=== PATIENT | male | born 1930 | race Caucasian/White ===

== ENCOUNTER 2016-11-26 17:00 | Emergency (ER) | payer MEDICARE, OTHER ==
[2016-11-26 17:35] VITALS: RESP 18
--- NOTE | 2016-11-26 17:50 | ED ---
General Adult HPI - General Chief complaint: Recheck/Abnormal Lab/Rx Stated complaint: Weakness Time Seen by Provider: 11/26/16 17:16 Source: patient, RN notes reviewed, old records reviewed Mode of arrival: wheelchair Limitations: no limitations - History of Present Illness Initial comments: This is an 86-year-old male the ER for evaluation. Patient will almost emergency room for evaluation of pain. Probable medication reaction. Patient did take morphine today which she does have an ALLERGIC reaction to. Patient denies any significant nausea vomiting is does not feel himself. Denies chest pain or short of breath denies abdominal pain. Complaining of just generalized body pain from his paresthesias which she always has. - Related Data Home Medications Medication Instructions Recorded Confirmed Calcium Carbonate/Vitamin D3 1 tab PO DAILY 12/11/13 11/26/16 [Os-Marcio 500-Vit D3 200 Caplet] Cholecalciferol [Vitamin D3] 1,000 unit PO DAILY 12/11/13 11/26/16 Cyanocobalamin [Vitamin B-12] 1,000 mcg PO DAILY 12/11/13 11/26/16 Ferrous Sulfate [Feosol] 325 mg PO BID 12/11/13 11/26/16 Levothyroxine Sodium [Synthroid] 100 mcg PO AC-BRKFST 12/11/13 11/26/16 Lisinopril [Prinivil] 20 mg PO BID 12/11/13 11/26/16 Multivitamin [Men's Multi-Vitamin] 1 tab PO DAILY 12/11/13 11/26/16 Lansoprazole [Prevacid] 30 mg PO DAILY PRN 04/01/15 11/26/16 Ondansetron [Zofran] 4 mg PO Q12HR PRN 04/01/15 11/26/16 Diphenoxylate HCl/Atropine 1 tab PO TID PRN 07/17/16 11/26/16 [Lomotil] Donepezil [Aricept] 5 mg PO HS 07/17/16 11/26/16 Melatonin 3 mg PO HS PRN 07/17/16 11/26/16 Methenamine Hippurate 1 gm PO BID 07/17/16 11/26/16 PARoxetine HCL [Paxil] 40 mg PO DAILY 07/17/16 11/26/16 Spironolactone [Aldactone] 25 mg PO DAILY 07/17/16 11/26/16 Aspirin EC [Ecotrin Low Dose] 81 mg PO HS 07/21/16 11/26/16 Metoprolol Succinate [Toprol XL] 100 mg PO DAILY 09/15/16 11/26/16 Propranolol HCl [Inderal] 60 mg PO BID 09/15/16 11/26/16 hydrALAZINE HCL 25 mg PO TID 09/15/16 11/26/16 Cetirizine HCl [Zyrtec] 10 mg PO DAILY 11/26/16 11/26/16 Mesalamine [Lialda] 1.2 gm PO BID 11/26/16 11/26/16 Neuroquell Otc 1 tab PO QID 11/26/16 11/26/16 Vitamin E (Dl,Tocopheryl Acet) 400 unit PO DAILY 11/26/16 11/26/16 [Vitamin E] oxyCODONE HCL 10 mg PO QID 11/26/16 11/26/16 Previous Rx's Medication Instructions Recorded Apixaban [Eliquis] 2.5 mg PO BID #60 tab 07/23/16 Allergies Allergy/AdvReac Type Severity Reaction Status Date / Time cephalexin [Cephalexin] Allergy Unknown Verified 11/26/16 18:14 cephalexin monohydrate Allergy Unknown Verified 11/26/16 18:14 [From Keflex] doxycycline Allergy Unknown Verified 11/26/16 17:36 furosemide [From Lasix] Allergy Unknown Verified 11/26/16 17:36 hydrocodone bitartrate Allergy Unknown Verified 11/26/16 18:14 [From Vicodin] hydromorphone HCl Allergy Unknown Verified 11/26/16 18:14 [From Dilaudid] levofloxacin [From Levaquin] Allergy Anaphylaxis Verified 11/26/16 18:14 nitrofurantoin Allergy Unknown Verified 11/26/16 17:36 macrocrystalline [From Macrodantin] sulfamethoxazole Allergy Unknown Verified 11/26/16 18:14 [From Bactrim] trimethoprim [From Bactrim] Allergy Unknown Verified 11/26/16 18:14 gabapentin AdvReac INCREASE Verified 11/26/16 18:14 IN BLOOD PRESSURE, PAIN INCREASED morphine AdvReac BLOOD Verified 11/26/16 18:14 PRESSURE DROPPED. Review of Systems ROS Statement: Those systems with pertinent positive or pertinent negative responses have been documented in the HPI. ROS Other: All systems not noted in ROS Statement are negative. 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 Past Anesthesia/Blood Transfusion Reactions: No Reported Reaction Type of Cardiac Device: Permanent Pacemaker Device Placement Date:: 2012 Past Psychological History: Anxiety, Depression Smoking Status: Never smoker Past Alcohol Use History: None Reported Additional Past Alcohol Use History / Comment(s): . Past Drug Use History: None Reported - Past Family History Father Family Medical History: Cancer Additional Family Medical History / Comment(s): at age 54 from colon cancer Mother Additional Family Medical History / Comment(s): at age 86 from aaa General Exam Limitations: no limitations General appearance: alert, in no apparent distress Head exam: Present: atraumatic, normocephalic, normal inspection Eye exam: Present: normal appearance, PERRL, EOMI. Absent: scleral icterus, conjunctival injection, periorbital swelling ENT exam: Present: normal exam, mucous membranes moist Neck exam: Present: normal inspection. Absent: tenderness, meningismus, lymphadenopathy Respiratory exam: Present: normal lung sounds bilaterally. Absent: respiratory distress, wheezes, rales, rhonchi, stridor Cardiovascular Exam: Present: regular rate, normal rhythm, normal heart sounds. Absent: systolic murmur, diastolic murmur, rubs, gallop, clicks GI/Abdominal exam: Present: soft, normal bowel sounds. Absent: distended, tenderness, guarding, rebound, rigid Extremities exam: Present: normal inspection, full ROM, normal capillary refill. Absent: tenderness, pedal edema, joint swelling, calf tenderness Back exam: Present: normal inspection Neurological exam: Present: alert, oriented X3, CN II-XII intact Psychiatric exam: Present: normal affect, normal mood Skin exam: Present: warm, dry, intact, normal color. Absent: rash Course Vital Signs 11/26/16 17:31 Temperature 98.2 F Pulse Rate 68 Respiratory 18 Rate Blood Pressure 139/73 O2 Sat by Pulse 93 L Oximetry - Reevaluation(s) Reevaluation #1: 11/26/16 19:09 At this point patient is feeling improved EKG Findings - EKG Comments: EKG Findings:: EKG shows normal sinus rhythm rate of 65, MN 180, QRS 90, QTc 457 Medical Decision Making - Medical Decision Making 78 male the ER for evaluation of chronic pain. Paresthesias. Neuropathy. Patient's pain status control will be discharged home follow-up with pain control in the morning - Lab Data Result diagrams: 11/26/16 18:05 11/26/16 18:05 Lab Results 11/26/16 11/26/16 Range/Units 18:05 18:05 WBC 11.5 H (3.8-10.6) k/uL RBC 3.82 L (4.30-5.90) m/uL Hgb 11.9 L (13.0-17.5) gm/dL Hct 36.4 L (39.0-53.0) % MCV 95.1 (80.0-100.0) fL MCH 31.0 (25.0-35.0) pg MCHC 32.6 (31.0-37.0) g/dL RDW 14.2 (11.5-15.5) % Plt Count 318 (150-450) k/uL Neutrophils % 81 % Lymphocytes % 10 % Monocytes % 7 % Eosinophils % 1 % Basophils % 1 % Neutrophils # 9.3 H (1.3-7.7) k/uL Lymphocytes # 1.1 (1.0-4.8) k/uL Monocytes # 0.8 (0-1.0) k/uL Eosinophils # 0.1 (0-0.7) k/uL Basophils # 0.1 (0-0.2) k/uL Sodium 131 L (137-145) mmol/L Potassium 4.8 (3.5-5.1) mmol/L Chloride 94 L (98-107) mmol/L Carbon Dioxide 29 (22-30) mmol/L Anion Gap 8 mmol/L BUN 23 H (9-20) mg/dL Creatinine 1.27 H (0.66-1.25) mg/dL Est GFR (MDRD) Af Amer >60 (>60 ml/min/1.73 sqM) Est GFR (MDRD) Non-Af 54 (>60 ml/min/1.73 sqM) Glucose 100 H (74-99) mg/dL Calcium 9.2 (8.4-10.2) mg/dL Phosphorus 3.2 (2.5-4.5) mg/dL Magnesium 2.0 (1.6-2.3) mg/dL Total Bilirubin 0.8 (0.2-1.3) mg/dL AST 24 (17-59) U/L ALT 25 (21-72) U/L Alkaline Phosphatase 56 (38-126) U/L Total Protein 7.4 (6.3-8.2) g/dL Albumin 4.1 (3.5-5.0) g/dL Disposition Clinical Impression: Neuropathic pain, Chronic pain Disposition: HOME SELF-CARE Condition: Good Instructions: Diabetic Peripheral Neuropathy (ED) Referrals: Artem Duran MD [Primary Care Provider] - 1-2 days
[2016-11-26] MEDS ORDERED: PANTOPRAZOLE 40 MG/10 ML VIAL IVP STA (18:26)
[2016-11-26] MEDS ORDERED: SODIUM CHLORIDE 0.9% 500 ML IV STA (18:26)
[2016-11-26] MEDS ORDERED: ONDANSETRON 4 MG/2 ML VIAL IVP STA (18:26)
[2016-11-26 18:53] LABS: Basophils # (A) 0.1 k/uL (0-0.2); Basophils % (A) 1 %; CH 31.1; CHCM 32.9; Eosinophils # (A) 0.1 k/uL (0-0.7); Eosinophils % (A) 1 %; HCT 36.4 % (39.0-53.0); HDW 2.24; HGB 11.9 gm/dL (13.0-17.5); Luc # (Auto) 0.22; Luc % (Auto) 2; Lymphocytes # (A) 1.1 k/uL (1.0-4.8); Lymphocytes % (A) 10 %; MCHC 32.6 g/dL (31.0-37.0); MCV 95.1 fL (80.0-100.0); Monocytes # (A) 0.8 k/uL (0-1.0); Monocytes % (A) 7 %; Neutrophils # (A) 9.3 k/uL (1.3-7.7); Neutrophils % (A) 81 %; RBC 3.82 m/uL (4.30-5.90); RDW 14.2 % (11.5-15.5); WBC 11.5 k/uL (3.8-10.6); WBC (Perox) 11.52
--- NOTE | 2016-11-26 18:53 | XR ---
EXAMINATION TYPE: XR chest 2V DATE OF EXAM: 11/26/2016 6:48 PM COMPARISON: NONE HISTORY: Weakness, abnormal labs, hypertension, and pacemaker. TECHNIQUE: Frontal and lateral views of the chest are obtained. FINDINGS: There is no focal air space opacity, pleural effusion, or pneumothorax seen. Dual lead ca rdiac device is redemonstrated. Cardiac silhouette is prominent. The osseous structures are intact. IMPRESSION: No acute cardiopulmonary process.
[2016-11-26] MEDS: NALOXONE 0.4 MG/ML 10 ML VIAL IVP STA ×2 (18:59→19:14)
[2016-11-26 19:01] LABS: ALT 25 U/L (21-72); AST 24 U/L (17-59); Alkaline Phosphatase 56 U/L (38-126); Anion Gap 8 mmol/L; Blood Urea Nitrogen 23 mg/dL (9-20); Calcium 9.2 mg/dL (8.4-10.2); Carbon Dioxide 29 mmol/L (22-30); Chloride 94 mmol/L (98-107); Glucose 100 mg/dL (74-99); Non-African American GFR(MDRD) 54 (>60 ml/min/1.73 sqM); Phosphorous 3.2 mg/dL (2.5-4.5); Potassium 4.8 mmol/L (3.5-5.1); Sodium 131 mmol/L (137-145); Total Bilirubin 0.8 mg/dL (0.2-1.3); Total Protein 7.4 g/dL (6.3-8.2)
[2016-11-26] MEDS ORDERED: diphenhydrAMINE 50 MG/ML 1 ML VIAL IVP STA (19:08)
[2016-11-26] MEDS ORDERED: traMADol 50 MG TAB PO STA (19:08)
[2016-11-26 19:23] LABS: Troponin I 0.013 ng/mL (0.000-0.034)
[2016-11-26] MEDS ORDERED: HYDROmorphone 1 MG/ML 1 ML SYRINGE IVP STA ×2 (19:53→20:30)
[2016-11-26 21:22] VITALS: BP 167/72; PULSE 74; TEMP 98
== END 2016-11-26 21:22 | disposition home or self-care (01) ==
LOC: EC 17:00
DX: G62.9 Polyneuropathy, unspecified (principal); G89.29 Other chronic pain; I48.91 Unspecified atrial fibrillation; K21.9 Gastro-esophageal reflux disease without esophagitis; E78.5 Hyperlipidemia, unspecified; I10 Essential (primary) hypertension; N42.9 Disorder of prostate, unspecified; E07.9 Disorder of thyroid, unspecified; Z95.0 Presence of cardiac pacemaker; F41.9 Anxiety disorder, unspecified; Z79.82 Long term (current) use of aspirin; Z79.899 Other long term (current) drug therapy; Z79.891 Long term (current) use of opiate analgesic; Z88.1 Allergy status to other antibiotic agents; Z87.440 Personal history of urinary (tract) infections; Z88.5 Allergy status to narcotic agent; Z88.8 Allergy status to other drugs, medicaments and biological substances
CPT/HCPCS: 36415; 93005; 80053; 82550; 82553; 83735; 84100; 84484; 85025; 71020; 96374; 96375; 96376; 99285; 96361; J1200; J2310; J2405; J1170; C9113

== ENCOUNTER 2016-12-27 17:20 | Emergency (ER) | payer MEDICARE, OTHER ==
[2016-12-27] MEDS ORDERED: SODIUM CHLORIDE 0.9% 500 ML IV STA (17:48)
[2016-12-27] MEDS ORDERED: HYDROcodone/APAP 10-325MG 1 EACH TAB PO ONE (17:52)
--- NOTE | 2016-12-27 18:06 | ED ---
Nausea/Vomiting/Diarrhea HPI - General Chief complaint: Nausea/Vomiting/Diarrhea Stated complaint: nausea,vomiting,weakness Time Seen by Provider: 12/27/16 17:39 Source: patient, RN notes reviewed Mode of arrival: wheelchair Limitations: no limitations - History of Present Illness Initial comments: 86-year-old male presents emergency Department with chief complaint of nausea vomiting weakness pain. Patient states that he started on Hysingla on Tuesday and states that he had nausea and did not follow up all shortly after. Patient states he refuses take it again and states that he now has uncontrolled pain. Patient has been on chronic pain meds for a long period time. Patient has multiple drug ALLERGIES. Patient states he has no abdominal pain states he has nausea when he does not want to eat. Patient states his abdomen episode of vomiting. Patient denies chest pain or shortness of breath denies fever or chills. - Related Data Home Medications Medication Instructions Recorded Confirmed Calcium Carbonate/Vitamin D3 1 tab PO DAILY 12/11/13 12/27/16 [Os-Marcio 500-Vit D3 200 Caplet] Cholecalciferol [Vitamin D3] 1,000 unit PO DAILY 12/11/13 12/27/16 Cyanocobalamin [Vitamin B-12] 500 mcg PO DAILY 12/11/13 12/27/16 Ferrous Sulfate [Feosol] 325 mg PO BID 12/11/13 12/27/16 Levothyroxine Sodium [Synthroid] 100 mcg PO AC-BRKFST 12/11/13 12/27/16 Lisinopril [Prinivil] 20 mg PO BID 12/11/13 12/27/16 Lansoprazole [Prevacid] 30 mg PO DAILY 04/01/15 12/27/16 Ondansetron [Zofran] 4 mg PO Q12HR PRN 04/01/15 12/27/16 Diphenoxylate HCl/Atropine 1 tab PO TID PRN 07/17/16 12/27/16 [Lomotil] Donepezil [Aricept] 5 mg PO HS 07/17/16 12/27/16 Melatonin 3 mg PO HS PRN 07/17/16 12/27/16 Methenamine Hippurate 1 gm PO BID 07/17/16 12/27/16 PARoxetine HCL [Paxil] 40 mg PO DAILY 07/17/16 12/27/16 Spironolactone [Aldactone] 12.5 mg PO DAILY 07/17/16 12/27/16 Aspirin EC [Ecotrin Low Dose] 81 mg PO HS 07/21/16 12/27/16 Metoprolol Succinate [Toprol XL] 100 mg PO DAILY 09/15/16 12/27/16 hydrALAZINE HCL 25 mg PO TID 09/15/16 12/27/16 Cetirizine HCl [Zyrtec] 10 mg PO DAILY 11/26/16 12/27/16 Mesalamine [Lialda] 1.2 gm PO AC-BID 11/26/16 12/27/16 Neuroquell Otc 1 tab PO DAILY 11/26/16 12/27/16 Vitamin E (Dl,Tocopheryl Acet) 400 unit PO DAILY 11/26/16 12/27/16 [Vitamin E] HYDROcodone/APAP 10-325MG [Scotts 1 tab PO BID PRN 12/27/16 12/27/16 10-325] Multivitamins, Thera [Multivitamin 1 tab PO DAILY 12/27/16 12/27/16 (formulary)] Previous Rx's Medication Instructions Recorded Apixaban [Eliquis] 2.5 mg PO BID #60 tab 07/23/16 Amoxicillin/Potassium Clav 1 tab PO Q12HR #20 tab 12/27/16 [Augmentin 875-125 Tablet] Allergies Allergy/AdvReac Type Severity Reaction Status Date / Time cephalexin [Cephalexin] Allergy Unknown Verified 12/27/16 18:32 doxycycline Allergy Unknown Verified 12/27/16 18:32 furosemide [From Lasix] Allergy Unknown Verified 12/27/16 18:32 hydromorphone HCl Allergy Unknown Verified 12/27/16 18:32 [From Dilaudid] levofloxacin [From Levaquin] Allergy Anaphylaxis Verified 12/27/16 18:32 nitrofurantoin Allergy Unknown Verified 12/27/16 18:32 macrocrystalline [From Macrodantin] sulfamethoxazole Allergy Unknown Verified 12/27/16 18:32 [From Bactrim] trimethoprim [From Bactrim] Allergy Unknown Verified 12/27/16 18:32 morphine AdvReac Severe Decreased Verified 12/27/16 18:32 Blood Pressure gabapentin AdvReac Increase Verified 12/27/16 18:32 in Pain/Diarrhea hydrocodone AdvReac Nausea/"Feel Verified 12/27/16 18:33 [From Hysingla ER] Weird All Over" Review of Systems ROS Statement: Those systems with pertinent positive or pertinent negative responses have been documented in the HPI. ROS Other: All systems not noted in ROS Statement are negative. 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 Past Anesthesia/Blood Transfusion Reactions: No Reported Reaction Type of Cardiac Device: Permanent Pacemaker Device Placement Date:: 2012 Past Psychological History: Anxiety, Depression Smoking Status: Never smoker Past Alcohol Use History: None Reported Additional Past Alcohol Use History / Comment(s): . Past Drug Use History: None Reported - Past Family History Father Family Medical History: Cancer Additional Family Medical History / Comment(s): at age 54 from colon cancer Mother Additional Family Medical History / Comment(s): at age 86 from aaa General Exam Limitations: no limitations General appearance: alert, in no apparent distress Head exam: Present: atraumatic, normocephalic, normal inspection Neck exam: Present: normal inspection, full ROM. Absent: tenderness, meningismus, lymphadenopathy Respiratory exam: Present: normal lung sounds bilaterally. Absent: respiratory distress, wheezes, rales, rhonchi, stridor Cardiovascular Exam: Present: regular rate, normal rhythm, normal heart sounds. Absent: systolic murmur, diastolic murmur, rubs, gallop, clicks GI/Abdominal exam: Present: soft, normal bowel sounds. Absent: distended, tenderness, guarding, rebound, rigid Neurological exam: Present: alert, oriented X3, CN II-XII intact Skin exam: Present: warm, dry, intact, normal color. Absent: rash Course Vital Signs 12/27/16 12/27/16 17:34 17:51 Temperature 98.4 F Pulse Rate 72 67 Respiratory 18 20 Rate Blood Pressure 116/69 125/73 O2 Sat by Pulse 97 95 Oximetry Medical Decision Making - Medical Decision Making 86-year-old male presented for medication reaction. Patient does feel improved at this time. Patient's found to have urinary tract infection. Patient will be discharged on Augmentin at this time it. Patient's prior cultures do show susceptibility to Augmentin 1 his had E. coli. Patient will follow up outpatient for recheck return parameters were discussed. - Lab Data Result diagrams: 12/27/16 18:10 12/27/16 18:10 Lab Results 12/27/16 12/27/16 12/27/16 Range/Units 18:10 18:10 18:10 WBC 9.0 (3.8-10.6) k/uL RBC 4.07 L (4.30-5.90) m/uL Hgb 12.6 L (13.0-17.5) gm/dL Hct 38.7 L (39.0-53.0) % MCV 95.1 (80.0-100.0) fL MCH 30.9 (25.0-35.0) pg MCHC 32.4 (31.0-37.0) g/dL RDW 14.0 (11.5-15.5) % Plt Count 357 (150-450) k/uL Neutrophils % 78 % Lymphocytes % 11 % Monocytes % 8 % Eosinophils % 1 % Basophils % 0 % Neutrophils # 7.0 (1.3-7.7) k/uL Lymphocytes # 1.0 (1.0-4.8) k/uL Monocytes # 0.8 (0-1.0) k/uL Eosinophils # 0.1 (0-0.7) k/uL Basophils # 0.0 (0-0.2) k/uL Sodium 129 L (137-145) mmol/L Potassium 4.8 (3.5-5.1) mmol/L Chloride 94 L (98-107) mmol/L Carbon Dioxide 27 (22-30) mmol/L Anion Gap 8 mmol/L BUN 21 H (9-20) mg/dL Creatinine 1.21 (0.66-1.25) mg/dL Est GFR (MDRD) Af Amer >60 (>60 ml/min/1.73 sqM) Est GFR (MDRD) Non-Af 57 (>60 ml/min/1.73 sqM) Glucose 98 (74-99) mg/dL Calcium 9.2 (8.4-10.2) mg/dL Total Bilirubin 0.6 (0.2-1.3) mg/dL AST 20 (17-59) U/L ALT 24 (21-72) U/L Alkaline Phosphatase 48 (38-126) U/L Troponin I <0.012 (0.000-0.034) ng/mL Total Protein 7.2 (6.3-8.2) g/dL Albumin 4.1 (3.5-5.0) g/dL Amylase 68 (30-110) U/L Lipase 176 (23-300) U/L Urine Color Urine Appearance (Clear) Urine pH (5.0-8.0) Ur Specific [place] (1.001-1.035) Urine Protein (Negative) Urine Glucose (UA) (Negative) Urine Ketones (Negative) Urine Blood (Negative) Urine Nitrite (Negative) Urine Bilirubin (Negative) Urine Urobilinogen (<2.0) mg/dL Ur Leukocyte Esterase (Negative) Urine RBC (0-5) /hpf Urine WBC (0-5) /hpf Urine WBC Clumps (None) /hpf Ur Squamous Epith Cells (0-4) /hpf Urine Bacteria (None) /hpf 12/27/16 Range/Units 19:25 WBC (3.8-10.6) k/uL RBC (4.30-5.90) m/uL Hgb (13.0-17.5) gm/dL Hct (39.0-53.0) % MCV (80.0-100.0) fL MCH (25.0-35.0) pg MCHC (31.0-37.0) g/dL RDW (11.5-15.5) % Plt Count (150-450) k/uL Neutrophils % % Lymphocytes % % Monocytes % % Eosinophils % % Basophils % % Neutrophils # (1.3-7.7) k/uL Lymphocytes # (1.0-4.8) k/uL Monocytes # (0-1.0) k/uL Eosinophils # (0-0.7) k/uL Basophils # (0-0.2) k/uL Sodium (137-145) mmol/L Potassium (3.5-5.1) mmol/L Chloride (98-107) mmol/L Carbon Dioxide (22-30) mmol/L Anion Gap mmol/L BUN (9-20) mg/dL Creatinine (0.66-1.25) mg/dL Est GFR (MDRD) Af Amer (>60 ml/min/1.73 sqM) Est GFR (MDRD) Non-Af (>60 ml/min/1.73 sqM) Glucose (74-99) mg/dL Calcium (8.4-10.2) mg/dL Total Bilirubin (0.2-1.3) mg/dL AST (17-59) U/L ALT (21-72) U/L Alkaline Phosphatase (38-126) U/L Troponin I (0.000-0.034) ng/mL Total Protein (6.3-8.2) g/dL Albumin (3.5-5.0) g/dL Amylase (30-110) U/L Lipase (23-300) U/L Urine Color Yellow Urine Appearance Cloudy (Clear) Urine pH 7.0 (5.0-8.0) Ur Specific [place] 1.014 (1.001-1.035) Urine Protein Trace H (Negative) Urine Glucose (UA) Negative (Negative) Urine Ketones Trace H (Negative) Urine Blood Negative (Negative) Urine Nitrite Positive (Negative) Urine Bilirubin Negative (Negative) Urine Urobilinogen <2.0 (<2.0) mg/dL Ur Leukocyte Esterase Large H (Negative) Urine RBC 12 H (0-5) /hpf Urine WBC >182 H (0-5) /hpf Urine WBC Clumps Occasional H (None) /hpf Ur Squamous Epith Cells <1 (0-4) /hpf Urine Bacteria Rare H (None) /hpf Disposition Clinical Impression: UTI (urinary tract infection), Chronic pain Disposition: HOME SELF-CARE Condition: Stable Instructions: Urinary Tract Infection in Men (ED) Additional Instructions: Please return to the Emergency Department if symptoms worsen or any other concerns. Prescriptions: Amoxicillin/Potassium Clav [Augmentin 875-125 Tablet] 1 tab PO Q12HR #20 tab Referrals: Artem Duran MD [Primary Care Provider] - 1-2 days Time of Disposition: 20:04
[2016-12-27 18:25] LABS: Basophils % (A) 0 %; CH 31.6; CHCM 33.4; Eosinophils # (A) 0.1 k/uL (0-0.7); Eosinophils % (A) 1 %; HCT 38.7 % (39.0-53.0); HDW 2.18; HGB 12.6 gm/dL (13.0-17.5); Luc # (Auto) 0.16; Luc % (Auto) 2; Lymphocytes % (A) 11 %; MCH 30.9 pg (25.0-35.0); MCHC 32.4 g/dL (31.0-37.0); MCV 95.1 fL (80.0-100.0); Monocytes # (A) 0.8 k/uL (0-1.0); Monocytes % (A) 8 %; Neutrophils % (A) 78 %; RBC 4.07 m/uL (4.30-5.90); WBC (Perox) 9.43
[2016-12-27 18:34] LABS: ALT 24 U/L (21-72); AST 20 U/L (17-59); Alkaline Phosphatase 48 U/L (38-126); Amylase 68 U/L (30-110); Anion Gap 8 mmol/L; Blood Urea Nitrogen 21 mg/dL (9-20); Calcium 9.2 mg/dL (8.4-10.2); Carbon Dioxide 27 mmol/L (22-30); Chloride 94 mmol/L (98-107); Glucose 98 mg/dL (74-99); Non-African American GFR(MDRD) 57 (>60 ml/min/1.73 sqM); Potassium 4.8 mmol/L (3.5-5.1); Sodium 129 mmol/L (137-145); Total Bilirubin 0.6 mg/dL (0.2-1.3); Total Protein 7.2 g/dL (6.3-8.2)
--- NOTE | 2016-12-27 18:41 | XR ---
EXAMINATION TYPE: XR chest 2V DATE OF EXAM: 12/27/2016 6:37 PM COMPARISON: 11/26/2016 HISTORY: Nausea TECHNIQUE: Frontal and lateral views of the chest are obtained. FINDINGS: There is no heart failure nor confluent pneumonic infiltrate. Thoracic aorta is atheromato us. There is a left axillary pacemaker with the lead tips in the right ventricle. There are chest lauren ds. IMPRESSION: No active cardiopulmonary disease. No change.
[2016-12-27 19:48] LABS: Appearance,Urine Cloudy (Clear); Bacteria,Urine Rare /hpf; Bilirubin,Urine Negative (Negative); Glucose,Urine (UA) Negative (Negative); Ketones,Urine Trace (Negative); Leukocyte Esterase,Urine Large (Negative); Nitrite,Urine Positive (Negative); Particle Count 6400; Protein,Urine Trace (Negative); RBC,Urine 12 /hpf (0-5); Specific Gravity,Urine 1.014 (1.001-1.035); Squamous Epithelial Cell,Urine <1 /hpf (0-4); UA Billing (MACRO vs. MICRO) MICRO; Urobilinogen,Urine <2.0 mg/dL (<2.0); WBC,Urine >182 /hpf (0-5)
[2016-12-27 20:35] VITALS: BP 128/71; PULSE 70; RESP 18; TEMP 98.1
== END 2016-12-27 20:25 | disposition home or self-care (01) ==
LOC: EC 17:20
DX: N39.0 Urinary tract infection, site not specified (principal); G89.29 Other chronic pain; R11.2 Nausea with vomiting, unspecified; I48.91 Unspecified atrial fibrillation; I50.9 Heart failure, unspecified; K21.9 Gastro-esophageal reflux disease without esophagitis; E78.5 Hyperlipidemia, unspecified; I11.0 Hypertensive heart disease with heart failure; E07.9 Disorder of thyroid, unspecified; Z95.0 Presence of cardiac pacemaker; F41.9 Anxiety disorder, unspecified; F32.9 Major depressive disorder, single episode, unspecified; Z88.1 Allergy status to other antibiotic agents; Z88.2 Allergy status to sulfonamides; Z88.5 Allergy status to narcotic agent; Z88.8 Allergy status to other drugs, medicaments and biological substances; Z79.82 Long term (current) use of aspirin; Z79.899 Other long term (current) drug therapy
CPT/HCPCS: 36415; 71020; 80053; 81001; 82150; 83690; 84484; 85025; 93005; 96360; 99285

== ENCOUNTER 2017-01-15 17:42 | Observation (INO) | payer MEDICARE, OTHER ==
[2017-01-15] MEDS ORDERED: methylPREDNISolone SOD SUCCI 125 MG/2 ML VIAL IV STA (17:43)
[2017-01-15] MEDS ORDERED: IPRATROPIUM 0.5 MG/2.5 ML NEBU INHALATION STA (17:43)
[2017-01-15] MEDS ORDERED: ALBUTEROL NEBULIZED 2.5 MG/3 ML INHALATION STA (17:43)
[2017-01-15] MEDS ORDERED: SODIUM CHLORIDE 0.9% 1,000 ML IV STA (17:43)
[2017-01-15] MEDS ORDERED: KETOROLAC 30 MG/ML 1 ML VIAL IVP STA (17:47)
[2017-01-15] MEDS ORDERED: ACETAMINOPHEN IV (For NPO) 1,000 MG in EMPTY BAG 1 BAG IVPB STA (17:47)
[2017-01-15 18:09] LABS: Basophils # (A) 0.1 k/uL (0-0.2); Basophils % (A) 1 %; CH 31.7; CHCM 34.1; Eosinophils # (A) 0.2 k/uL (0-0.7); Eosinophils % (A) 3 %; HCT 35.5 % (39.0-53.0); HGB 11.8 gm/dL (13.0-17.5); Luc # (Auto) 0.19; Luc % (Auto) 3; Lymphocytes # (A) 1.3 k/uL (1.0-4.8); Lymphocytes % (A) 20 %; MCHC 33.2 g/dL (31.0-37.0); MCV 93.2 fL (80.0-100.0); Mean Platelet Volume 6.9; Monocytes # (A) 0.4 k/uL (0-1.0); Monocytes % (A) 6 %; Neutrophils # (A) 4.4 k/uL (1.3-7.7); Neutrophils % (A) 68 %; RBC 3.81 m/uL (4.30-5.90); RDW 13.4 % (11.5-15.5); WBC 6.5 k/uL (3.8-10.6)
[2017-01-15 18:13] LABS: Prothrombin Time 10.2 sec (9.0-12.0)
[2017-01-15 18:17] LABS: ALT 22 U/L (21-72); AST 29 U/L (17-59); Alkaline Phosphatase 44 U/L (38-126); Anion Gap 10 mmol/L; Blood Urea Nitrogen 28 mg/dL (9-20); Calcium 8.8 mg/dL (8.4-10.2); Carbon Dioxide 25 mmol/L (22-30); Chloride 101 mmol/L (98-107); Glucose 115 mg/dL (74-99); Non-African American GFR(MDRD) >60 (>60 ml/min/1.73 sqM); Potassium 4.6 mmol/L (3.5-5.1); Sodium 136 mmol/L (137-145); Total Bilirubin 0.7 mg/dL (0.2-1.3); Total Protein 6.6 g/dL (6.3-8.2)
--- NOTE | 2017-01-15 18:21 | ED ---
General Adult HPI - General Chief complaint: Shortness of Breath Stated complaint: Diff Breathing Time Seen by Provider: 01/15/17 17:43 Source: patient, EMS, RN notes reviewed, old records reviewed Mode of arrival: EMS Limitations: no limitations - History of Present Illness Initial comments: This is a 87-year-old male EL assurance of breath or sore throat. Congestion and chest pain. Patient was mildly short of breath upon EMS arrival and brought to ER if any breathing treatment. Patient does not have a history of COPD per patient. Patient's history is hypertension and A. fib chest pain high blood pressure high cholesterol. Patient's mainly complaining of chest pain at this time. Patient usually takes [place] for his pain with is not working at this time. No fevers no cough or congestion - Related Data Home Medications Medication Instructions Recorded Confirmed Calcium Carbonate/Vitamin D3 1 tab PO DAILY 12/11/13 01/15/17 [Os-Marcio 500-Vit D3 200 Caplet] Cholecalciferol [Vitamin D3] 1,000 unit PO DAILY 12/11/13 01/15/17 Cyanocobalamin [Vitamin B-12] 500 mcg PO DAILY 12/11/13 01/15/17 Ferrous Sulfate [Feosol] 325 mg PO BID 12/11/13 01/15/17 Levothyroxine Sodium [Synthroid] 100 mcg PO AC-BRKFST 12/11/13 01/15/17 Lisinopril [Prinivil] 20 mg PO BID 12/11/13 01/15/17 Lansoprazole [Prevacid] 30 mg PO DAILY 04/01/15 01/15/17 Ondansetron [Zofran] 4 mg PO Q12HR PRN 04/01/15 01/15/17 Diphenoxylate HCl/Atropine 1 tab PO TID PRN 07/17/16 01/15/17 [Lomotil] Donepezil [Aricept] 5 mg PO HS 07/17/16 01/15/17 Melatonin 3 mg PO HS PRN 07/17/16 01/15/17 Methenamine Hippurate 1 gm PO BID 07/17/16 01/15/17 PARoxetine HCL [Paxil] 40 mg PO DAILY 07/17/16 01/15/17 Spironolactone [Aldactone] 12.5 mg PO DAILY 07/17/16 01/15/17 Aspirin EC [Ecotrin Low Dose] 81 mg PO HS 07/21/16 01/15/17 Metoprolol Succinate [Toprol XL] 100 mg PO DAILY 09/15/16 01/15/17 hydrALAZINE HCL 25 mg PO TID 09/15/16 01/15/17 Cetirizine HCl [Zyrtec] 10 mg PO DAILY 11/26/16 01/15/17 Mesalamine [Lialda] 1.2 gm PO AC-BID 11/26/16 01/15/17 Neuroquell Otc 1 tab PO DAILY 11/26/16 01/15/17 Vitamin E (Dl,Tocopheryl Acet) 400 unit PO DAILY 11/26/16 01/15/17 [Vitamin E] HYDROcodone/APAP 10-325MG [[place] 1 tab PO Q6H PRN 12/27/16 01/15/17 10-325] Multivitamins, Thera [Multivitamin 1 tab PO DAILY 12/27/16 01/15/17 (formulary)] Previous Rx's Medication Instructions Recorded Apixaban [Eliquis] 2.5 mg PO BID #60 tab 07/23/16 Allergies Allergy/AdvReac Type Severity Reaction Status Date / Time cephalexin [Cephalexin] Allergy Unknown Verified 01/15/17 18:20 doxycycline Allergy Unknown Verified 01/15/17 18:20 furosemide [From Lasix] Allergy Unknown Verified 01/15/17 18:20 hydromorphone HCl Allergy Unknown Verified 01/15/17 18:20 [From Dilaudid] levofloxacin [From Levaquin] Allergy Anaphylaxis Verified 01/15/17 18:20 nitrofurantoin Allergy Unknown Verified 01/15/17 18:20 macrocrystalline [From Macrodantin] sulfamethoxazole Allergy Unknown Verified 01/15/17 18:20 [From Bactrim] trimethoprim [From Bactrim] Allergy Unknown Verified 01/15/17 18:20 morphine AdvReac Severe Decreased Verified 01/15/17 18:20 Blood Pressure gabapentin AdvReac Increase Verified 01/15/17 18:20 in Pain/Diarrhea hydrocodone AdvReac Nausea/"Feel Verified 01/15/17 18:20 [From [facility]] Weird All Over" Review of Systems ROS Statement: Those systems with pertinent positive or pertinent negative responses have been documented in the HPI. ROS Other: All systems not noted in ROS Statement are negative. 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 Past Anesthesia/Blood Transfusion Reactions: No Reported Reaction Type of Cardiac Device: Permanent Pacemaker Device Placement Date:: 2012 Past Psychological History: Anxiety, Depression Smoking Status: Never smoker Past Alcohol Use History: None Reported Past Drug Use History: None Reported - Past Family History Father Family Medical History: Cancer Additional Family Medical History / Comment(s): at age 54 from colon cancer Mother Additional Family Medical History / Comment(s): at age 86 from aaa General Exam Limitations: no limitations General appearance: alert, in no apparent distress, anxious Head exam: Present: atraumatic, normocephalic, normal inspection Eye exam: Present: normal appearance, PERRL, EOMI. Absent: scleral icterus, conjunctival injection, periorbital swelling ENT exam: Present: normal exam, mucous membranes moist Neck exam: Present: normal inspection. Absent: tenderness, meningismus, lymphadenopathy Respiratory exam: Present: normal lung sounds bilaterally, wheezes. Absent: respiratory distress, rales, rhonchi, stridor Cardiovascular Exam: Present: regular rate, normal rhythm, normal heart sounds. Absent: systolic murmur, diastolic murmur, rubs, gallop, clicks GI/Abdominal exam: Present: soft, normal bowel sounds. Absent: distended, tenderness, guarding, rebound, rigid Extremities exam: Present: normal inspection, full ROM, normal capillary refill. Absent: tenderness, pedal edema, joint swelling, calf tenderness Back exam: Present: normal inspection Neurological exam: Present: alert, oriented X3, CN II-XII intact Psychiatric exam: Present: normal affect, normal mood Skin exam: Present: warm, dry, intact, normal color. Absent: rash Course Vital Signs 01/15/17 01/15/17 01/15/17 17:42 18:16 19:00 Temperature 98.1 F Pulse Rate 71 71 65 Respiratory 20 18 18 Rate Blood Pressure 168/80 174/86 183/83 O2 Sat by Pulse 98 96 98 Oximetry - Reevaluation(s) Reevaluation #1: 01/15/17 19:23 Patient's without real patient is without real improvement in breathing EKG Findings - EKG Comments: EKG Findings:: EKG shows normal sinus rhythm rate of 67, PA 196, QRS 88, QTC 437 Medical Decision Making - Medical Decision Making 89 without ER for evaluation of chest pain. Patient has anterior having chest pain. She has been wrapping around anterior chest. Presents with shortness of breath with cough and congestion, exacerbation. No fevers. No pneumonia. Patient be admitted for cardiac observation including breathing treatments or COPD - Lab Data Result diagrams: 01/15/17 17:50 01/15/17 17:50 Lab Results 01/15/17 01/15/17 01/15/17 Range/Units 17:50 17:50 17:50 WBC 6.5 (3.8-10.6) k/uL RBC 3.81 L (4.30-5.90) m/uL Hgb 11.8 L (13.0-17.5) gm/dL Hct 35.5 L (39.0-53.0) % MCV 93.2 (80.0-100.0) fL MCH 31.0 (25.0-35.0) pg MCHC 33.2 (31.0-37.0) g/dL RDW 13.4 (11.5-15.5) % Plt Count 280 (150-450) k/uL Neutrophils % 68 % Lymphocytes % 20 % Monocytes % 6 % Eosinophils % 3 % Basophils % 1 % Neutrophils # 4.4 (1.3-7.7) k/uL Lymphocytes # 1.3 (1.0-4.8) k/uL Monocytes # 0.4 (0-1.0) k/uL Eosinophils # 0.2 (0-0.7) k/uL Basophils # 0.1 (0-0.2) k/uL PT (9.0-12.0) sec INR (<1.1) APTT (22.0-30.0) sec Sodium 136 L (137-145) mmol/L Potassium 4.6 (3.5-5.1) mmol/L Chloride 101 (98-107) mmol/L Carbon Dioxide 25 (22-30) mmol/L Anion Gap 10 mmol/L BUN 28 H (9-20) mg/dL Creatinine 0.98 (0.66-1.25) mg/dL Est GFR (MDRD) Af Amer >60 (>60 ml/min/1.73 sqM) Est GFR (MDRD) Non-Af >60 (>60 ml/min/1.73 sqM) Glucose 115 H (74-99) mg/dL Calcium 8.8 (8.4-10.2) mg/dL Magnesium 2.0 (1.6-2.3) mg/dL Total Bilirubin 0.7 (0.2-1.3) mg/dL AST 29 (17-59) U/L ALT 22 (21-72) U/L Alkaline Phosphatase 44 (38-126) U/L Total Creatine Kinase 157 (55-170) U/L CK-MB (CK-2) 1.2 (0.0-2.4) ng/mL CK-MB (CK-2) Rel Index 0.8 Troponin I 0.014 (0.000-0.034) ng/mL NT-Pro-B Natriuret Pep pg/mL Total Protein 6.6 (6.3-8.2) g/dL Albumin 3.7 (3.5-5.0) g/dL 01/15/17 01/15/17 Range/Units 17:50 17:50 WBC (3.8-10.6) k/uL RBC (4.30-5.90) m/uL Hgb (13.0-17.5) gm/dL Hct (39.0-53.0) % MCV (80.0-100.0) fL MCH (25.0-35.0) pg MCHC (31.0-37.0) g/dL RDW (11.5-15.5) % Plt Count (150-450) k/uL Neutrophils % % Lymphocytes % % Monocytes % % Eosinophils % % Basophils % % Neutrophils # (1.3-7.7) k/uL Lymphocytes # (1.0-4.8) k/uL Monocytes # (0-1.0) k/uL Eosinophils # (0-0.7) k/uL Basophils # (0-0.2) k/uL PT 10.2 (9.0-12.0) sec INR 1.0 (<1.1) APTT 22.0 (22.0-30.0) sec Sodium (137-145) mmol/L Potassium (3.5-5.1) mmol/L Chloride (98-107) mmol/L Carbon Dioxide (22-30) mmol/L Anion Gap mmol/L BUN (9-20) mg/dL Creatinine (0.66-1.25) mg/dL Est GFR (MDRD) Af Amer (>60 ml/min/1.73 sqM) Est GFR (MDRD) Non-Af (>60 ml/min/1.73 sqM) Glucose (74-99) mg/dL Calcium (8.4-10.2) mg/dL Magnesium (1.6-2.3) mg/dL Total Bilirubin (0.2-1.3) mg/dL AST (17-59) U/L ALT (21-72) U/L Alkaline Phosphatase (38-126) U/L Total Creatine Kinase (55-170) U/L CK-MB (CK-2) (0.0-2.4) ng/mL CK-MB (CK-2) Rel Index Troponin I (0.000-0.034) ng/mL NT-Pro-B Natriuret Pep 815 pg/mL Total Protein (6.3-8.2) g/dL Albumin (3.5-5.0) g/dL - Radiology Data Radiology results: report reviewed (Chest x-ray is negative for acute disease), image reviewed Disposition Clinical Impression: Chronic pain, Acute exacerbation of chronic obstructive airways disease, Chest pain Disposition: ADMITTED IP TO THIS [facility] Condition: Undetermined Referrals: Artem Duran MD [Primary Care Provider] - 1-2 days
--- NOTE | 2017-01-15 18:36 | XR ---
EXAMINATION TYPE: XR chest 2V DATE OF EXAM: 01/15/2017 COMPARISON: 12/27/2016 HISTORY: Short of breath TECHNIQUE: Frontal and lateral views of the chest are obtained. FINDINGS: There is no heart failure nor confluent pneumonic infiltrate. Heart size is normal. Thorac ic aorta is atheromatous. Costophrenic angles are clear. There is left axillary pacemaker with the le ad tips in the right ventricle. IMPRESSION: No active cardiopulmonary disease. No change.
[2017-01-15 18:42] LABS: Creatine Kinase MB 1.2 ng/mL (0.0-2.4); Troponin I 0.014 ng/mL (0.000-0.034)
[2017-01-15] MEDS ORDERED: IPRATROPIUM-ALBUTEROL 3 ML NEB INHALATION PRN (19:24)
[2017-01-15] MEDS ORDERED: ASPIRIN 81 MG CHEW PO STA (19:24)
[2017-01-15] MEDS ORDERED: NITROGLYCERIN SL TABS 0.4 MG TAB SUBLINGUAL PRN (19:24)
[2017-01-15] MEDS: SODIUM CHLORIDE 0.9% 1,000 ML IV SCH (19:55)
[2017-01-15] MEDS: HYDROcodone/APAP 10-325MG 1 EACH TAB PO PRN (20:51)
[2017-01-15] MEDS: methylPREDNISolone SOD SUCCI 125 MG/2 ML VIAL IV SCH (23:32)
[2017-01-16 00:53] LABS: Creatine Kinase MB 1.2 ng/mL (0.0-2.4); Troponin I 0.023 ng/mL (0.000-0.034)
[2017-01-16] MEDS: HYDROcodone/APAP 10-325MG 1 EACH TAB PO PRN ×6 (01:59→21:40)
[2017-01-16] MEDS: SODIUM CHLORIDE 0.9% 1,000 ML IV SCH ×2 (04:31→11:45)
[2017-01-16] MEDS: methylPREDNISolone SOD SUCCI 125 MG/2 ML VIAL IV SCH ×3 (06:31→17:30)
[2017-01-16 07:04] LABS: Cholesterol 172 mg/dL (<200); HDL Cholesterol 52 mg/dL (40-60); Triglycerides 53 mg/dL (<150)
[2017-01-16 07:16] LABS: Troponin I 0.025 ng/mL (0.000-0.034)
[2017-01-16] MEDS ORDERED: ENOXAPARIN 40 MG/0.4 ML SYRINGE SQ SCH (09:00)
[2017-01-16] MEDS ORDERED: ASPIRIN 325 MG TAB PO SCH (09:00)
[2017-01-16] MEDS ORDERED: HYDROcodone/APAP 10-325MG 1 EACH TAB PO PRN (09:17)
[2017-01-16] MEDS: ISOSORBIDE MONONITRATE ER 30 MG TAB.ER.24H PO SCH (10:20)
[2017-01-16] MEDS ORDERED: ONDANSETRON 4 MG TAB PO PRN (10:35)
[2017-01-16] MEDS ORDERED: DIPHENOX-ATROP 2.5-0.025 MG 1 EACH TAB PO PRN (10:35)
[2017-01-16 11:48] LABS: Glucose,Whole Blood 165 mg/dL (75-99)
[2017-01-16] MEDS ORDERED: MULTIVITAMINS, THERA 1 EACH TAB PO SCH (12:00)
[2017-01-16] MEDS: CYANOCOBALAMIN 500 MCG TAB PO SCH (12:14)
[2017-01-16] MEDS: CALCIUM CARB-VIT D 500MG-200UN 1 EACH TAB PO SCH (12:14)
[2017-01-16] MEDS: CHOLECALCIFEROL 1,000 UNIT TAB PO SCH (12:14)
[2017-01-16] MEDS: VITAMIN E (DL,TOCOPHERYL ACET) 400 UNIT CAP PO SCH (12:15)
[2017-01-16] MEDS: INSULIN LISPRO (humaLOG) 300 UNIT/3 ML VIAL SQ SCH ×3 (12:15→20:32)
[2017-01-16] MEDS: BALSALAZIDE DISODIUM 750 MG CAPSULE PO SCH ×2 (12:15→17:30)
[2017-01-16] MEDS: LORATADINE 10 MG TAB PO SCH (12:15)
[2017-01-16 15:22] LABS: Hemoglobin A1C 5.4 % (4.2-6.1)
[2017-01-16] MEDS: hydrALAZINE HCL 25 MG TAB PO SCH ×2 (15:30→20:09)
[2017-01-16] MEDS ORDERED: IBUPROFEN 400 MG TAB PO STA (16:09)
--- NOTE | 2017-01-16 16:10 | CONS ---
DATE OF CONSULTATION: ATTENDING: Dr. Duran. Mr. Jarrett is an 87-year-old male with a known history of paroxysmal atrial fibrillation, permanent pacemaker implantation, who presented with symptoms of chest discomfort. Patient has a known history of neuropathy, had discomfort. He was not quite sure what it was. He was mildly dyspneic, came into the emergency room, subsequently admitted. He is in sinus mechanism at this time. He denies any dizziness, palpitation. He has no syncope. He has no documented history of obstructive coronary artery disease according to him. He has been followed by Dr. Carney or regular basis and underwent an echocardiogram 6 months ago that revealed an ejection fraction of 50% to 55%. Patient has no PND. No orthopnea. His discomfort this morning is very mild and is worse with deep inspiration. His coronary risk factors are negative for smoking. He is nondiabetic. He is hypertensive. His medications include Eliquis 2.5 mg twice a day, Zyrtec, vitamin D, Lomotil, Aricept, [place], Prevacid, Synthroid, Prinivil 20 mg twice a day. Lialda, Toprol-XL 100 mg daily, Zofran, Paxil, Aldactone 12.5 mg daily and hydralazine 25 mg 3 times a day. REVIEW OF SYSTEMS: RESPIRATORY SYSTEM: He has mild dyspnea on exertion. No recent wheezing or cough. GI: No recent GI bleeding. No peptic ulcer disease. SYSTEM: No dysuria or hematuria. NERVOUS SYSTEM: No history of seizure. PHYSICAL EXAMINATION: He is an 87-year-old male hard of hearing in no apparent distress. Blood pressure 178/80. Of note the patient was not restarted on his antihypertensive regimen. HEAD: Normocephalic. EYES: Sclerae anicteric. NECK: Good upstroke. No bruit. No jugular venous distention. LUNGS: Clear to auscultation. HEART: Regular rate and rhythm. S1, S2, no S3, with systolic murmur heard at the base. No diastolic murmur. No rub. ABDOMEN: Soft, nontender, positive bowel sounds. No organomegaly. EXTREMITIES: No edema. Intact distal pulses. Lab data revealed troponin 0.014, 0.023 0.025. Cholesterol 172, LDL 109. BUN and creatinine of 28 and 0.98. Potassium 4.6. Hemoglobin of 11.8. EKG revealed a sinus mechanism, normal intervals, left axis deviation, poor R wave progression. No acute changes. Chest x-ray revealed no acute infiltrate. IMPRESSION: 1. Chest discomfort of unclear etiology has some atypical feature for ischemic heart disease, probably noncardiac. 2. History of paroxysmal atrial fibrillation, remains in normal sinus rhythm. 3. Hypertension. RECOMMENDATION: I will start him back on his oral medications. I will stop his Lovenox and aspirin. I will add nitrate to his regimen for the possibility of ischemic event. I would not recommend any aggressive work-up in view of his age. Depending on his progress, further recommendation will be made. Thank you for this consult. We will follow with you.
[2017-01-16 17:01] LABS: Glucose,Whole Blood 162 mg/dL (75-99)
[2017-01-16] MEDS: FERROUS SULFATE 325 MG TAB PO SCH (20:09)
[2017-01-16] MEDS: LISINOPRIL 20 MG TAB PO SCH (20:09)
[2017-01-16] MEDS: APIXABAN 2.5 MG TABLET PO SCH (20:09)
[2017-01-16 20:55] LABS: Glucose,Whole Blood 138 mg/dL (75-99)
[2017-01-16] MEDS ORDERED: METHENAMINE HIPPURATE 1 GM PO SCH (21:00)
[2017-01-16] MEDS ORDERED: MELATONIN 3 MG TABLET PO PRN (21:00)
[2017-01-16] MEDS ORDERED: DONEPEZIL 5 MG TAB PO SCH (21:00)
--- NOTE | 2017-01-16 21:36 | HP ---
DATE OF ADMISSION: 01/15/2017 Darren John is an 87-year-old male who came to the ED at [facility] with increasing shortness of breath. He had some congestion and chest pain. He was mildly short of breath and was brought in by EMS. He does have a history of COPD, hypertension, atrial fibrillation. He is also hard of hearing. He denied any fever, chills or rigors. Past medical history is positive for atrial fibrillation, angina, congestive heart failure, bilateral hearing aids, history of UTIs, history of neuropathy, history of chronic pain. Bowel resection, back surgery, cholecystectomy, hernia repair, orthopedic surgery, pacemaker placement, prostate surgery, TURP, EGD. FAMILY HISTORY: Positive for cancer in his father who at age 54. Mother at age 86 from her abdominal aortic aneurysm. REVIEW OF SYSTEMS: Noncontributory. Medications prior to his admission were: 1. Hydralazine. 2. Vitamin E. 3. Spironolactone. 4. Paxil. 5. Zofran. 6. ( ). 7. Multivitamin. 8. Metoprolol. 9. Methenamine hippurate. 10. Mesalamine. 11. Melatonin. 12. Lisinopril. 13. Synthroid. 14. Prevacid. 15. Acetaminophen with hydrocodone. 16. Feosol. 17. Aricept. 18. Lomotil. 19. Vitamin B12. 20. Vitamin D3. 21. Zyrtec. 22. [place]. 23. Aspirin. 24. Eliquis. SOCIAL HISTORY: Patient does not drink alcohol excessively. Does not smoke at this time, but apparently did smoke in the past. ALLERGIES: THE PATIENT HAS HAD ADVERSE REACTIONS TO MORPHINE, GABAPENTIN, HYDROCODONE, TRIMETHOPRIM, SULFA, NITROFURANTOIN AND LEVAQUIN, HYDROMORPHONE, LASIX, DOXYCYCLINE AND KEFLEX. On physical examination, he was lying in bed flat. He is not in any respiratory distress. His blood pressure is 151/82, respiratory rate 18, pulse of 76, temperature 97.1, O2 sat on 2 liters by nasal cannula is 95%. HEENT reveals pupils that are equal. No jugular venous distention. Chest is clear. Cardiovascular system reveals an S1, S2. ABDOMEN: Soft. There is no pedal edema. White count is 6.5, hemoglobin of 11.8. Sodium 136, potassium 4.6, chloride 101, bicarb 25, BUN 28, creatinine 0.98. Cholesterol 172, LDL 102, CK MB is 1.2. Troponin is 0.014. IMPRESSION: 1. Chest pain with shortness of breath secondary to cardiac etiology is likely. 2. Chronic obstructive pulmonary disease. 3. Chronic pain. 4. History of atrial fibrillation. At this point in time, consult cardiology. Await their final recommendations. Keep his pain under control and resume his home medications. Depending on how he does, we shall make further changes to his care.
[2017-01-17] MEDS: methylPREDNISolone SOD SUCCI 125 MG/2 ML VIAL IV SCH ×2 (00:49→06:02)
[2017-01-17 07:03] LABS: Glucose,Whole Blood 161 mg/dL (75-99)
[2017-01-17] MEDS ORDERED: LEVOTHYROXINE 100 MCG TAB PO SCH (07:30)
[2017-01-17] MEDS ORDERED: PANTOPRAZOLE 40 MG TABLET PO SCH (07:30)
[2017-01-17] MEDS: INSULIN LISPRO (humaLOG) 300 UNIT/3 ML VIAL SQ SCH (07:33)
[2017-01-17] MEDS: BALSALAZIDE DISODIUM 750 MG CAPSULE PO SCH (07:33)
[2017-01-17 07:34] VITALS: BP 143/76; PULSE 91; RESP 16; TEMP 98.1
[2017-01-17] MEDS: FERROUS SULFATE 325 MG TAB PO SCH (07:38)
[2017-01-17] MEDS: CALCIUM CARB-VIT D 500MG-200UN 1 EACH TAB PO SCH (07:38)
[2017-01-17] MEDS: VITAMIN E (DL,TOCOPHERYL ACET) 400 UNIT CAP PO SCH (07:38)
[2017-01-17] MEDS: CYANOCOBALAMIN 500 MCG TAB PO SCH (07:38)
[2017-01-17] MEDS: ISOSORBIDE MONONITRATE ER 30 MG TAB.ER.24H PO SCH (07:38)
[2017-01-17] MEDS: APIXABAN 2.5 MG TABLET PO SCH (07:38)
[2017-01-17] MEDS: hydrALAZINE HCL 25 MG TAB PO SCH (07:38)
[2017-01-17] MEDS: LISINOPRIL 20 MG TAB PO SCH (07:44)
[2017-01-17] MEDS: CHOLECALCIFEROL 1,000 UNIT TAB PO SCH (07:44)
[2017-01-17] MEDS: LORATADINE 10 MG TAB PO SCH (07:44)
[2017-01-17] MEDS ORDERED: PARoxetine 20 MG TAB PO SCH (09:00)
[2017-01-17] MEDS ORDERED: METOPROLOL SUCCINATE (ER) 100 MG TAB.ER.24H PO SCH (09:00)
[2017-01-17] MEDS ORDERED: SPIRONOLACTONE 25 MG TAB PO SCH (09:00)
[2017-01-17] MEDS ORDERED: [UNRECOGNIZED DRUG - OTHER] PO SCH (09:00)
[2017-01-17] MEDS: HYDROcodone/APAP 10-325MG 1 EACH TAB PO PRN (09:04)
--- NOTE | 2017-01-17 09:34 | P.DS ---
Providers Date of admission: 01/15/17 19:24 Attending physician: Artem Duran Consults: 01/15/17 22:28 Consult Physician Routine Consulting Provider: Roma Vega Consult Reason/Comments: chest pain Do you want consulting provider notified?: Yes, Notify in am Primary care physician: Artem Duran [facility] Course: 87-year-old male presented on the day of admission to the emergency room chief complaint chest discomfort mildly short of breath. Activated EMS system brought patient to the emergency room. Patient does not have a history of COPD. Patient does have a history of hypertension and paroxysmal atrial fibrillation. Had not been experiencing any cough or fever or chills at home. Patient does report that he normally takes Blanket at home but it did not relieve the chest discomfort. Patient is very hard of hearing patient was seen by Dr. gregory. Patient has been followed in the outpatient setting by Dr. gill a regular basis. Patient had an echocardiogram done 6 months ago it did show an ejection fraction 50-55%. Patient is not a diabetic. Patient does have paroxysmal atrial fibrillation and his son eloquence at home. Cardiology felt the chest pain was unclear etiology atypical features probable noncardiac. Cardiac enzymes the troponin were negative 3. In the 12-lead EKG did not show any acute changes. Chest x-ray was negative for any acute infiltrate. Patient maintain sinus rhythm. Patient's chest pain had resolved was no further chest pain since admission. Patient was able ambulate from the bed to the bathroom gait was noted to be steady. Patient was anxious to be discharged Impression discharge diagnosis Present on admission chest pain atypical features no evidence of acute coronary syndrome troponin 3 negative Hearing deficit Paroxysmal atrial fibrillation maintaining sinus rhythm on ellavernncramírez Hypertension essential Present on admission hypertension urgency resolved The above dictated assessment and findings were discussed with dr gina oclorado covering for Dr. Duran . Impression and the plan of care have been dictated as directed. Teresa Cota nurse practitioner acting as a scribe for Dr. Lucía araujo covering for Dr. Duran Patient Condition at Discharge: Undetermined Plan - Discharge Summary New Discharge Prescriptions: Continue Lisinopril [Prinivil] 20 mg PO BID Levothyroxine Sodium [Synthroid] 100 mcg PO AC-BRKFST Ferrous Sulfate [Feosol] 325 mg PO BID Cyanocobalamin [Vitamin B-12] 500 mcg PO DAILY Cholecalciferol [Vitamin D3] 1,000 unit PO DAILY Calcium Carbonate/Vitamin D3 [Os-Marcio 500-Vit D3 200 Caplet] 1 tab PO DAILY Ondansetron [Zofran] 4 mg PO Q12HR PRN PRN Reason: Nausea Lansoprazole [Prevacid] 30 mg PO DAILY Diphenoxylate HCl/Atropine [Lomotil] 1 tab PO TID PRN PRN Reason: Diarrhea Melatonin 3 mg PO HS PRN PRN Reason: Insomnia Donepezil [Aricept] 5 mg PO HS Spironolactone [Aldactone] 12.5 mg PO DAILY PARoxetine HCL [Paxil] 40 mg PO DAILY Methenamine Hippurate 1 gm PO BID Aspirin EC [Ecotrin Low Dose] 81 mg PO HS Apixaban [Eliquis] 2.5 mg PO BID #60 tab hydrALAZINE HCL 25 mg PO TID Metoprolol Succinate [Toprol XL] 100 mg PO DAILY Mesalamine [Lialda] 1.2 gm PO AC-BID Cetirizine HCl [Zyrtec] 10 mg PO DAILY Vitamin E (Dl,Tocopheryl Acet) [Vitamin E] 400 unit PO DAILY Neuroquell Otc 1 tab PO DAILY HYDROcodone/APAP 10-325MG [Blanket 10-325] 1 tab PO Q6H PRN PRN Reason: Pain Multivitamins, Thera [Multivitamin (formulary)] 1 tab PO DAILY Discharge Medication List Calcium Carbonate/Vitamin D3 [Os-Marcio 500-Vit D3 200 Caplet] 1 tab PO DAILY 12/11 [History] Cholecalciferol [Vitamin D3] 1,000 unit PO DAILY 12/11/13 [History] Cyanocobalamin [Vitamin B-12] 500 mcg PO DAILY 12/11/13 [History] Ferrous Sulfate [Feosol] 325 mg PO BID 12/11/13 [History] Levothyroxine Sodium [Synthroid] 100 mcg PO AC-BRKFST 12/11/13 [History] Lisinopril [Prinivil] 20 mg PO BID 12/11/13 [History] Lansoprazole [Prevacid] 30 mg PO DAILY 04/01/15 [History] Ondansetron [Zofran] 4 mg PO Q12HR PRN 04/01/15 [History] Diphenoxylate HCl/Atropine [Lomotil] 1 tab PO TID PRN 07/17/16 [History] Donepezil [Aricept] 5 mg PO HS 07/17/16 [History] Melatonin 3 mg PO HS PRN 07/17/16 [History] Methenamine Hippurate 1 gm PO BID 07/17/16 [History] PARoxetine HCL [Paxil] 40 mg PO DAILY 07/17/16 [History] Spironolactone [Aldactone] 12.5 mg PO DAILY 07/17/16 [History] Aspirin EC [Ecotrin Low Dose] 81 mg PO HS 07/21/16 [History] Apixaban [Eliquis] 2.5 mg PO BID #60 tab 07/23/16 [Rx] Metoprolol Succinate [Toprol XL] 100 mg PO DAILY 09/15/16 [History] hydrALAZINE HCL 25 mg PO TID 09/15/16 [History] Cetirizine HCl [Zyrtec] 10 mg PO DAILY 11/26/16 [History] Mesalamine [Lialda] 1.2 gm PO AC-BID 11/26/16 [History] Neuroquell Otc 1 tab PO DAILY 11/26/16 [History] Vitamin E (Dl,Tocopheryl Acet) [Vitamin E] 400 unit PO DAILY 11/26/16 [History] HYDROcodone/APAP 10-325MG [Blanket 10-325] 1 tab PO Q6H PRN 12/27/16 [History] Multivitamins, Thera [Multivitamin (formulary)] 1 tab PO DAILY 12/27/16 [History ] Follow up Appointment(s)/Referral(s): Artem Duran MD [Primary Care Provider] - 1-2 days Dmitri Gill MD [STAFF PHYSICIAN] - 1 Week Discharge Disposition: HOME SELF-CARE
== END 2017-01-17 11:10 | disposition home or self-care (01) ==
LOC: EC 17:42 → 6SEL 19:24 → 5MS5E 01-16 19:52
PROVIDERS: ADMIT Family Medicine; ATTEND Family Medicine
DX: J44.9 Chronic obstructive pulmonary disease, unspecified (principal); I48.0 Paroxysmal atrial fibrillation; H91.90 Unspecified hearing loss, unspecified ear; I11.0 Hypertensive heart disease with heart failure; I50.9 Heart failure, unspecified; E78.00 Pure hypercholesterolemia, unspecified; K21.9 Gastro-esophageal reflux disease without esophagitis; E07.9 Disorder of thyroid, unspecified; E78.5 Hyperlipidemia, unspecified; G62.9 Polyneuropathy, unspecified; Z95.0 Presence of cardiac pacemaker; F41.9 Anxiety disorder, unspecified; Z88.8 Allergy status to other drugs, medicaments and biological substances; Z79.899 Other long term (current) drug therapy; Z79.82 Long term (current) use of aspirin; Z79.01 Long term (current) use of anticoagulants; Z88.1 Allergy status to other antibiotic agents; Z88.5 Allergy status to narcotic agent; Z88.2 Allergy status to sulfonamides; F32.9 Major depressive disorder, single episode, unspecified; Z87.440 Personal history of urinary (tract) infections; Z87.891 Personal history of nicotine dependence; G89.29 Other chronic pain; I16.0 Hypertensive urgency
CPT/HCPCS: 96376 ×3; 96361 ×3; 96373; 96374; 96375; 99285; 36415; 94640; 93005; 83880; 80061; 80053; 83036; 82550 ×2; 82553 ×2; 83735; 84484 ×2; 85025; 85610; 85730; 87040; 71020; G0378 ×4; J2930 ×3; J1650; J1885; J0131

== ENCOUNTER 2017-02-08 11:08 | Day surgery (SDC) | payer MEDICARE, OTHER ==
[2017-02-03 13:36] VITALS: BMI 27.8
[~2017-02-08 11:08] MED LIST: LACTATED RINGERS 1,000 ML IV SCH
[2017-02-08] MEDS ORDERED: LIDOCAINE 1% 20 ML VIAL (10MG/ML) FOR IV START INTRADERMA ONE (11:30)
[2017-02-08 11:46] VITALS: TEMP 97.5
[2017-02-08] MEDS: CYCLOPENTOLATE 1% OPHTH SOLN 2 ML BTL OP ONE ×3 (11:46→12:05)
[2017-02-08] MEDS: FLURBIPROFEN 0.03% OPHTH DROPS 2.5 ML BTL OP ONE ×3 (11:48→12:08)
[2017-02-08] MEDS: PHENYLEPHRINE 10% OPHTH DROPS 5 ML BTL OP ONE ×3 (11:51→12:11)
[2017-02-08] MEDS ORDERED: PROPOFOL 10 MG/ML 20 ML VIAL IV ONE (12:33)
[2017-02-08] MEDS ORDERED: BALANCED SALT IRRIG SOLN COMB2 15 ML IRRIG.SOLN IRRIGATION ONE (12:36)
[2017-02-08] MEDS ORDERED: HYALURONATE SODIUM INTRAOCULAR 1 EACH SYRINGE (10MG/ML) INTRAOCULA ONE (12:36)
[2017-02-08] MEDS ORDERED: TETRACAINE 0.5% OPHTH (PF) DROPS 4 ML BTL LEFT EYE ONE (12:36)
[2017-02-08] MEDS ORDERED: LIDOCAINE 1% (PF) 10MG/ML VIAL MISCELLANE ONE (12:37)
[2017-02-08] MEDS ORDERED: EPINEPHrine (PF) 0.5 ML in BALANCED SALT IRRIG SOLN COMB2 500 ML IRRIGATION ONE (12:48)
--- NOTE | 2017-02-08 12:56 | P.OP ---
Date of Procedure: 02/08/17 Preoperative Diagnosis: Postoperative Diagnosis: Procedure(s) Performed: PREOPERATIVE DIAGNOSIS: Cataract, left eye eye. POSTOPERATIVE DIAGNOSIS: Cataract, left eye. OPERATION: Phacoemulsification cataract, left eye. DESCRIPTION OF PROCEDURE: The patient was taken to the preoperative holding area. Intravenous Propofol was given so as to bring about adequate sedation. The following mixture was given for local anesthesia: 5 mL of 2% lidocaine, 5 mL of 0.75% Marcaine, and 1 mL of W[place]ase. Approximately 4 mL was injected in the retrobulbar space of the surgical eye. Additional 1 mL was then directed to the temporal area of the surgical eye. This was performed to allow adequate neurological block of the facial muscles. The patient was revived and then taken into the operative room. The patient was prepped and draped in the usual sterile manner for the operative eye. A lid speculum was put into position. The conjunctiva was resected back from the limbus in the 12 o'clock position. Bleeding was controlled with electrocautery. A #69 blade was then used and a half-thickness scleral incision approximately 1-mm posterior to the limbus was made on bare sclera. This was shelved in the clear cornea using a crescent knife. Next a 15-degree blade was used to make a stab incision at the 3 o' clock position at the corneolimbal interface. Keratome blade was then used and the superior wound was extended into the anterior chamber. Viscoelastic was injected into the anterior chamber and to maintain its form. Next, a cystotome was used and a continuous anterior capsulotomy was made without difficulty. Hydrodissection using a blunt cannula and BSS was performed. Phaco probe was then employed and a groove extending from 12 to 6 o'clock in the lens was created. A Fernando wand was used through the stab incision so as to perform a divide and conquer technique. Next an irrigation aspiration probe was utilized and any residual cortex was removed from the eye. Again, viscoelastic was injected into the anterior chamber. An Kyle posterior chamber lens implant was placed in the cartridge and injected into the anterior chamber without difficulty. The [employer] hook was utilized to spin the lens into position and this was again performed without any difficulty. The irrigation and aspiration probe was again employed and any residual viscoelastic was removed from the eye. Then BSS was injected into the limbal stab incision and the anterior chamber re-inflated. The conjunctiva was reapproximated using electrocautery. One drop of 0.25% Timoptic was placed over the corneal along with TobraDex ophthalmic ointment. Two sterile patches and a Khan eye shield were taped into position. The patient was transported to the recovery room in stable condition. Implants: Pathology: none sent Condition: stable Disposition: same day Indications for Procedure: Operative Findings: Description of Procedure:
[2017-02-08 13:00] VITALS: PULSE 62
[2017-02-08 13:15] VITALS: BP 141/71; RESP 18
[2017-02-08] MEDS ORDERED: TIMOLOL 0.5% OPHTH SOLN (PF) 0.2 ML DROPERETTE OP ONE (23:00)
[2017-02-08] MEDS ORDERED: BUPIVACAINE (PF) 0.75% 5 ML, LIDOCAINE 4% (PF) 5 ML, HYALURONIDASE, HUMAN RECOMB 150 UNIT MISCELLANE ONE ×3 (23:00)
[2017-02-08] MEDS ORDERED: GENTAMICIN/PREDNISOL AC OPHTH OINT 3.5GM OPHTHALMIC ONE (23:00)
== END 2017-02-08 15:01 | disposition home or self-care (01) ==
LOC: OR 11:08
PROVIDERS: ATTEND Ophthalmology
DX: H26.9 Unspecified cataract (principal); I10 Essential (primary) hypertension; E07.9 Disorder of thyroid, unspecified; G62.9 Polyneuropathy, unspecified; Z87.891 Personal history of nicotine dependence; I50.9 Heart failure, unspecified; I49.9 Cardiac arrhythmia, unspecified; E78.5 Hyperlipidemia, unspecified; I48.91 Unspecified atrial fibrillation; Z79.01 Long term (current) use of anticoagulants; Z95.0 Presence of cardiac pacemaker; K21.9 Gastro-esophageal reflux disease without esophagitis; Z79.82 Long term (current) use of aspirin; Z79.891 Long term (current) use of opiate analgesic; Z79.899 Other long term (current) drug therapy; Z88.6 Allergy status to analgesic agent; Z88.1 Allergy status to other antibiotic agents; Z88.5 Allergy status to narcotic agent; Z88.2 Allergy status to sulfonamides; Z88.8 Allergy status to other drugs, medicaments and biological substances
CPT/HCPCS: 66984; V2632; J2001 ×2; J3470; J0171; J2704

== ENCOUNTER 2017-05-17 10:41 | Day surgery (SDC) | payer MEDICARE, OTHER ==
[2017-05-12 13:11] VITALS: BMI 26.4
[2017-05-17] MEDS: PHENYLEPHRINE 10% OPHTH DROPS 5 ML BTL OP ONE ×3 (11:13→11:26)
[2017-05-17] MEDS: CYCLOPENTOLATE 1% OPHTH SOLN 2 ML BTL OP ONE ×3 (11:15→11:28)
[2017-05-17] MEDS: KETOROLAC 0.5% OPHTH DROPS 5 ML BTL OP ONE ×3 (11:17→11:31)
[2017-05-17 11:24] VITALS: RESP 18; TEMP 98.4
[2017-05-17] MEDS ORDERED: LIDOCAINE 1% 20 ML VIAL (10MG/ML) FOR IV START INTRADERMA ONE (11:25)
[2017-05-17] MEDS ORDERED: PROPOFOL 10 MG/ML 20 ML VIAL IV ONE (12:00)
[2017-05-17] MEDS ORDERED: BALANCED SALT IRRIG SOLN COMB2 15 ML IRRIG.SOLN INTRAOCULA ONE (12:09)
[2017-05-17] MEDS ORDERED: TIMOLOL 0.5% OPHTH SOLN (PF) 0.2 ML DROPERETTE RIGHT EYE ONE (12:10)
[2017-05-17] MEDS ORDERED: HYALURONATE SODIUM INTRAOCULAR 1 EACH SYRINGE (10MG/ML) INTRAOCULA ONE (12:10)
[2017-05-17] MEDS ORDERED: EPINEPHrine (PF) 0.5 ML in BALANCED SALT IRRIG SOLN COMB2 500 ML IRRIGATION ONE (12:13)
--- NOTE | 2017-05-17 12:29 | P.OP ---
Date of Procedure: 05/17/17 Procedure(s) Performed: PREOPERATIVE DIAGNOSIS: Cataract, right eye. POSTOPERATIVE DIAGNOSIS: Cataract, right eye. OPERATION: Phacoemulsification cataract, right eye. DESCRIPTION OF PROCEDURE: The patient was taken to the preoperative holding area. Intravenous Propofol was given so as to bring about adequate sedation. The following mixture was given for local anesthesia: 5 mL of 2% lidocaine, 5 mL of 0.75% Marcaine, and 1 mL of Wydase. Approximately 4 mL was injected in the retrobulbar space of the surgical eye. Additional 1 mL was then directed to the temporal area of the surgical eye. This was performed to allow adequate neurological block of the facial muscles. The patient was revived and then taken into the operative room. The patient was prepped and draped in the usual sterile manner for the operative eye. A lid speculum was put into position. The conjunctiva was resected back from the limbus in the 12 o'clock position. Bleeding was controlled with electrocautery. A #69 blade was then used and a half-thickness scleral incision approximately 1-mm posterior to the limbus was made on bare sclera. This was shelved in the clear cornea using a crescent knife. Next a 15-degree blade was used to make a stab incision at the 3 o' clock position at the corneolimbal interface. Keratome blade was then used and the superior wound was extended into the anterior chamber. Viscoelastic was injected into the anterior chamber and to maintain its form. A [place] ring was injected into the chamber and the pupil was stretched into position. Next, a cystotome was used and a continuous anterior capsulotomy was made without difficulty. Hydrodissection using a blunt cannula and BSS was performed. Phaco probe was then employed and a groove extending from 12 to 6 o' clock in the lens was created. A Fernando wand was used through the stab incision so as to perform a divide and conquer technique. Next an irrigation aspiration probe was utilized and any residual cortex was removed from the eye. Again, viscoelastic was injected into the anterior chamber. An Kyel posterior chamber lens implant was placed in the cartridge and injected into the anterior chamber without difficulty. The Sinskey hook was utilized to spin the lens into position and this was again performed without any difficulty. The Maluygin ring was removed from the eye. The irrigation and aspiration probe was again employed and any residual viscoelastic was removed from the eye. Then BSS was injected into the limbal stab incision and the anterior chamber re-inflated. The conjunctiva was reapproximated using electrocautery. One drop of 0.25% Timoptic was placed over the corneal along with TobraDex ophthalmic ointment. Two sterile patches and a Khan eye shield were taped into position. The patient was transported to the recovery room in stable condition. Pathology: none sent Condition: stable Disposition: same day
[2017-05-17 12:54] VITALS: BP 104/56; PULSE 63
[2017-05-17] MEDS ORDERED: TIMOLOL 0.5% OPHTH SOLN (PF) 0.2 ML DROPERETTE OP ONE (23:00)
[2017-05-17] MEDS ORDERED: BUPIVACAINE (PF) 0.75% 5 ML, LIDOCAINE 4% (PF) 5 ML, HYALURONIDASE, HUMAN RECOMB 150 UNIT MISCELLANE ONE ×3 (23:00)
[2017-05-17] MEDS ORDERED: GENTAMICIN/PREDNISOL AC OPHTH OINT 3.5GM OPHTHALMIC ONE (23:00)
== END 2017-05-17 13:44 | disposition home or self-care (01) ==
LOC: OR 10:41
PROVIDERS: ATTEND Ophthalmology
DX: H25.11 Age-related nuclear cataract, right eye (principal); Z90.49 Acquired absence of other specified parts of digestive tract; I20.9 Angina pectoris, unspecified; I11.0 Hypertensive heart disease with heart failure; I50.9 Heart failure, unspecified; I49.9 Cardiac arrhythmia, unspecified; E78.5 Hyperlipidemia, unspecified; Z95.0 Presence of cardiac pacemaker; I48.91 Unspecified atrial fibrillation; E07.9 Disorder of thyroid, unspecified; G62.9 Polyneuropathy, unspecified; F41.9 Anxiety disorder, unspecified; F32.9 Major depressive disorder, single episode, unspecified; Z79.899 Other long term (current) drug therapy; Z79.891 Long term (current) use of opiate analgesic; Z79.82 Long term (current) use of aspirin; Z79.01 Long term (current) use of anticoagulants; Z88.1 Allergy status to other antibiotic agents; Z88.5 Allergy status to narcotic agent; Z88.8 Allergy status to other drugs, medicaments and biological substances; Z87.891 Personal history of nicotine dependence
CPT/HCPCS: 66984; V2632; J2001; J3470; J0171; J2704

== ENCOUNTER 2017-09-07 17:17 | Emergency (ER) | payer MEDICARE, OTHER ==
[2017-09-07 17:24] VITALS: BP 168/81; PULSE 68; RESP 18; TEMP 97.4
[2017-09-07] MEDS ORDERED: HYDROcodone/APAP 10-325MG 1 EACH TAB PO ONE (17:44)
[2017-09-07] MEDS ORDERED: traMADol 50 MG STARTER PACK 3 TAB BTL PO STA (17:44)
--- NOTE | 2017-09-07 17:48 | ED ---
General Adult HPI - General Chief complaint: Recheck/Abnormal Lab/Rx Stated complaint: MED REFILL Time Seen by Provider: 09/07/17 17:37 Source: patient, RN notes reviewed Mode of arrival: ambulatory Limitations: no limitations - History of Present Illness Initial comments: 87-year-old male presents emergency Department chief complaint of medication refill. 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 Patient states his appointment tomorrow with Dr. Crooks. Patient states he is out of his [place] and tramadol. He states he was a [place] switched to tramadol states that it has not been covering his pain. Patient states he was not discharged from his practice. Patient denies any new injuries or new complaints he states is her chronic issues. - Related Data Home Medications Medication Instructions Recorded Confirmed Calcium Carbonate/Vitamin D3 1 tab PO DAILY 12/11/13 05/12/17 [Os-Marcio 500-Vit D3 200 Caplet] Cholecalciferol [Vitamin D3] 1,000 unit PO DAILY 12/11/13 05/12/17 Cyanocobalamin [Vitamin B-12] 2,500 mcg PO DAILY 12/11/13 05/12/17 Ferrous Sulfate [Feosol] 325 mg PO BID 12/11/13 05/12/17 Levothyroxine Sodium [Synthroid] 100 mcg PO AC-BRKFST 12/11/13 05/12/17 Lisinopril [Prinivil] 20 mg PO BID 12/11/13 05/12/17 Lansoprazole [Prevacid] 30 mg PO DAILY PRN 04/01/15 05/12/17 Ondansetron [Zofran] 4 mg PO Q12HR PRN 04/01/15 05/12/17 Donepezil [Aricept] 5 mg PO HS 07/17/16 05/12/17 Methenamine Hippurate 1 gm PO BID 07/17/16 05/12/17 PARoxetine HCL [Paxil] 40 mg PO DAILY 07/17/16 05/12/17 Spironolactone [Aldactone] 12.5 mg PO DAILY 07/17/16 05/12/17 Aspirin EC [Ecotrin Low Dose] 81 mg PO HS 07/21/16 05/12/17 Metoprolol Succinate [Toprol XL] 100 mg PO DAILY 09/15/16 05/12/17 hydrALAZINE HCL 50 mg PO TID 09/15/16 05/12/17 Mesalamine [Lialda] 1.2 gm PO AC-BID 11/26/16 05/12/17 Vitamin E (Dl,Tocopheryl Acet) 400 unit PO DAILY 11/26/16 05/12/17 [Vitamin E] HYDROcodone/APAP 10-325MG [[place] 1 tab PO Q6H PRN 12/27/16 05/12/17 10-325] Multivitamins, Thera [Multivitamin 1 tab PO DAILY 12/27/16 05/12/17 (formulary)] Previous Rx's Medication Instructions Recorded Apixaban [Eliquis] 2.5 mg PO BID #60 tab 07/23/16 Allergies Allergy/AdvReac Type Severity Reaction Status Date / Time cephalexin [Cephalexin] Allergy Unknown Verified 09/07/17 17:24 doxycycline Allergy Unknown Verified 09/07/17 17:24 furosemide [From Lasix] Allergy Unknown Verified 09/07/17 17:24 hydromorphone HCl Allergy Unknown Verified 09/07/17 17:24 [From Dilaudid] levofloxacin [From Levaquin] Allergy Anaphylaxis Verified 09/07/17 17:24 nitrofurantoin Allergy Unknown Verified 09/07/17 17:24 macrocrystalline [From Macrodantin] sulfamethoxazole Allergy Unknown Verified 09/07/17 17:24 [From Bactrim] trimethoprim [From Bactrim] Allergy Unknown Verified 09/07/17 17:24 morphine AdvReac Severe Decreased Verified 09/07/17 17:24 Blood Pressure gabapentin AdvReac Increase Verified 09/07/17 17:24 in Pain/Diarrhea hydrocodone AdvReac Nausea/"Feel Verified 09/07/17 17:24 [From [facility]] Weird All Over" Review of Systems ROS Statement: Those systems with pertinent positive or pertinent negative responses have been documented in the HPI. ROS Other: All systems not noted in ROS Statement are negative. Past Medical History Past Medical History: Atrial Fibrillation, Chest Pain / Angina, Heart Failure, GERD/Reflux, Hyperlipidemia, Hypertension, Prostate Disorder, Thyroid Disorder Additional Past Medical History / Comment(s): SELF CATHETERIZATION (SINCE 1995) , HX OF UTI'S, SMALL CELL NEUROPATHY WITH PAIN ALL OVER History of Any Multi-Drug Resistant Organisms: None Reported Past Surgical History: Back Surgery, Bowel Resection, Cholecystectomy, Hernia Repair, Orthopedic Surgery, Pacemaker, Prostate Surgery Additional Past Surgical History / Comment(s): TURP, abd sx for tangled bowel, inc hernia repair ,colonoscopy, EGD, lt cataract Past Anesthesia/Blood Transfusion Reactions: No Reported Reaction Type of Cardiac Device: Permanent Pacemaker Device Placement Date:: 2012 Past Psychological History: Anxiety, Depression Smoking Status: Never smoker Past Alcohol Use History: None Reported Past Drug Use History: None Reported - Past Family History Father Family Medical History: Cancer Additional Family Medical History / Comment(s): at age 54 from colon cancer Mother Additional Family Medical History / Comment(s): at age 86 from aaa General Exam Limitations: no limitations General appearance: alert, in no apparent distress Head exam: Present: atraumatic, normocephalic, normal inspection Respiratory exam: Present: normal lung sounds bilaterally. Absent: respiratory distress, wheezes, rales, rhonchi, stridor Cardiovascular Exam: Present: regular rate, normal rhythm, normal heart sounds. Absent: systolic murmur, diastolic murmur, rubs, gallop, clicks Skin exam: Present: warm, dry, intact, normal color. Absent: rash Course Vital Signs 09/07/17 17:21 Temperature 97.4 F L Pulse Rate 68 Respiratory 18 Rate Blood Pressure 168/81 O2 Sat by Pulse 95 Oximetry Medical Decision Making - Medical Decision Making 87-year-old male has chronic pain and presented for pain control. Patient will be given 2 tablets of [place] and a tramadol starter pack and he is advised that he'll not give prescription currently is on pain management. Patient agrees this plan. Disposition Clinical Impression: Neuropathic pain, Chronic pain Disposition: HOME SELF-CARE Condition: Stable Instructions: Chronic Pain (ED) Additional Instructions: Please return to the Emergency Department if symptoms worsen or any other concerns. Referrals: Artem Duran MD [Primary Care Provider] - 1-2 days Time of Disposition: 17:47
== END 2017-09-07 18:01 | disposition home or self-care (01) ==
LOC: EC 17:17
DX: M79.2 Neuralgia and neuritis, unspecified (principal); G89.29 Other chronic pain; I11.0 Hypertensive heart disease with heart failure; I50.9 Heart failure, unspecified; F41.9 Anxiety disorder, unspecified; F32.9 Major depressive disorder, single episode, unspecified; E07.9 Disorder of thyroid, unspecified; Z88.1 Allergy status to other antibiotic agents; Z88.2 Allergy status to sulfonamides; Z88.5 Allergy status to narcotic agent; Z88.8 Allergy status to other drugs, medicaments and biological substances; Z79.82 Long term (current) use of aspirin; Z79.899 Other long term (current) drug therapy
CPT/HCPCS: 99281